=== PATIENT | male | born 1975 | race Caucasian/White ===

== ENCOUNTER 2021-07-13 21:46 | Emergency (ER) | payer OTHER ==
[2021-07-13 22:19] LABS: BASOPHIL 0.7 % (0-2); EOSINOPHIL 3.1 % (0-5); HCT 43.5 % (42.0-52.0); LYMPHOCYTE 37.2 % (15-48); MCH 29.5 pg (25.0-31.0); MCHC 34.5 g/dL (32.0-36.0); MCV 85.6 fL (78.0-100.0); MONOCYTE 7.2 % (0-12); MPV 9.6 fL (6.0-9.5); NEUTROPHIL 51.6 % (41-80); NRBC 0; PLT 167 K/uL (150-400); RBC 5.08 M/uL (4.70-6.00); RDW 11.9 % (11.5-14.0); WBC 4.6 K/uL (4.0-10.5)
[2021-07-13 22:34] LABS: ALBUMIN 3.5 g/dL (3.4-5.0); BILIRUBIN - TOTAL 0.3 mg/dL (0.2-1.0); BUN/CREAT RATIO (CALC) 11.1 RATIO; CREATININE 1.26 mg/dL (0.67-1.17); GLOBULIN (CALCULATION) 2.6 g/dL; POTASSIUM 3.5 mmol/L (3.5-5.1); TOTAL PROTEIN 6.1 g/dL (6.4-8.2)
[2021-07-14] MEDS ORDERED: VENTOLIN HFA18 GM INH (02:29)
== END 2021-07-14 03:45 | disposition home or self-care (01) ==
LOC: FER 21:46
PROVIDERS: Emergency Medicine
DX: T27.3XXA Burn of respiratory tract, part unspecified, initial encounter (principal); N17.9 Acute kidney failure, unspecified; Z88.6 Allergy status to analgesic agent; X08.8XXA Exposure to other specified smoke, fire and flames, initial encounter; Y92.89 Other specified places as the place of occurrence of the external cause
CPT/HCPCS: 36415; 36600; 70450; 71045; 80053; 82803; 84484; 85025; 93005; 94640; 94664; 94762; J2930; J7030

== ENCOUNTER 2021-10-26 10:50 | Emergency (ER) | payer OTHER ==
[~2021-10-26 10:50] MED LIST: VENTOLIN HFA18 GM INH
[2021-10-26] MEDS ORDERED: KEFLEX250 MG PO (12:42)
[2021-10-26] MEDS ORDERED: NORCO 5-325 TA1 EACH PO (12:42)
== END 2021-10-26 13:00 | disposition home or self-care (01) ==
LOC: FER 10:50
DX: S61.011A Laceration without foreign body of right thumb without damage to nail, initial encounter (principal); S63.124A Dislocation of interphalangeal joint of right thumb, initial encounter; Z28.310 Unvaccinated for COVID-19; Y92.79 Other farm location as the place of occurrence of the external cause; W55.22XA Struck by cow, initial encounter; Z88.6 Allergy status to analgesic agent
CPT/HCPCS: 73130; 73140